=== PATIENT | male | born 1965 | race Caucasian/White ===

== ENCOUNTER 2016-05-08 06:27 | Inpatient (IN) | payer BC ==
[~2016-05-08] VITALS: Ht 177.8 cm; Wt 146.0 kg
[~2016-05-08 06:27] MED LIST: ABILIFY5 MG PO; ATORVASTATIN CA80 MG PO; BUPROPION HCL100 M1 PO; EPIPEN ADU0.3 MG/0.3 IM; FLUOXETINE HCL20 MG PO; GLIPIZIDE10 MG PO; LANTUS 3 M100 UNITS1 SC; LISINOPRIL5 MG PO; METFORMIN HCL1000 MG PO; VIAGRA100 MG PO; VITAMIN D35000 UNIT PO
[2016-05-08 07:04] VITALS: BP 158/86
[2016-05-08 07:29] LABS: POINT-OF-CARE METER ID UU14174212
[2016-05-08 10:58] LABS: POINT-OF-CARE METER ID UU13113675
[2016-05-08 12:15] VITALS: BP 163/81
[2016-05-08 12:27] LABS: POINT-OF-CARE METER ID UU13113675; POINT-OF-CARE USER ID 515036437
[2016-05-08 15:36] VITALS: BP 160/86
[2016-05-08 17:54] LABS: POINT-OF-CARE METER ID UU14162508
[2016-05-08 19:25] VITALS: BP 175/84
[2016-05-09] VITALS: BP 174/84
[2016-05-09 04:41] VITALS: BP 170/80
[2016-05-09 06:35] VITALS: BP 157/88
[2016-05-09 06:51] LABS: POINT-OF-CARE METER ID UU14162508
[2016-05-09 07:37] LABS: HEMATOCRIT 35.3 % (38.0-50.0); MCH 28.6 PG (29.0-34.0); MCHC 32.9 G/DL (30.0-36.0); MCV 86.9 FL (86-99); MEAN PLAT.VOLUME 9.3 uM^3 (9.0-12.4); PLATELET COUNT 254 K/uL (156-360); RBC DIS.WIDTH-CV 13.4 % (11.8-14.6); RBC DIS.WIDTH-SD 42.8 % (39-53); RED BLOOD COUNT 4.06 M/uL (4.00-5.50); WHITE BLOOD COUNT 13.5 K/uL (4.1-10.2)
[2016-05-09 07:50] VITALS: BP 156/87
[2016-05-09 07:58] LABS: ANION GAP 14 MEQ/L (2-14); CHLORIDE 99 MEQ/L (99-109); GFR ESTIMATE (CALCULATED) > 59 mL/min/; GLUCOSE 255 mg/dL (70-99); MAGNESIUM 1.8 mg/dl (1.3-2.7); POTASSIUM 4.2 MEQ/L (3.7-5.4); SAMPLE HEMOLYSIS CHECK 0; SAMPLE ICTERIC CHECK 0; SAMPLE LIPEMIA CHECK 0; SODIUM 139 MEQ/L (136-147); UREA NITROGEN (BUN) 10 mg/dL (9-23)
[2016-05-09] MEDS ORDERED: HYDROCODON-ACE1 EAC7 PO (08:28)
== END 2016-05-09 10:53 | disposition home or self-care (01) | DRG 621 ==
LOC: 2SOUTH 06:27 → 2EAST 12:07
PROVIDERS: Surgery
PROC: 0DB64Z3 Excision of Stomach, Percutaneous Endoscopic Approach, Vertical (ICD-10-PCS; principal; 2016-05-08)
DX: E66.01 Morbid (severe) obesity due to excess calories (principal); I10 Essential (primary) hypertension; E11.9 Type 2 diabetes mellitus without complications; E78.5 Hyperlipidemia, unspecified; M19.90 Unspecified osteoarthritis, unspecified site; E55.9 Vitamin D deficiency, unspecified; F32.9 Major depressive disorder, single episode, unspecified; G43.909 Migraine, unspecified, not intractable, without status migrainosus; Z90.49 Acquired absence of other specified parts of digestive tract; Z68.42 Body mass index [BMI] 45.0-49.9, adult
CPT/HCPCS: 80048; 82948; 83735; 84100; 85027; J0330; J0690; J1170; J1644; J1815; J2250; J2405; J2710; J2765; J3010; J3480; J7120; S0020